=== PATIENT | female | born 2000 | race Caucasian/White ===

== ENCOUNTER 2018-10-20 18:52 | Emergency (ER) | payer OTHER ==
[~2018-10-20] VITALS: Ht 167.6 cm; Wt 63.5 kg
[2018-10-20 19:05] VITALS: BP_SYST 130
[2018-10-20] MEDS ORDERED: IBUPROFEN 600 MG TABLET PO ONE (19:45)
[2018-10-20] MEDS ORDERED: BACITRACIN 1 GM OINT TP ONE (20:00)
[2018-10-20 20:14] VITALS: BP_SYST 130
== END 2018-10-20 20:14 | disposition home or self-care (01) ==
LOC: SED 18:52
DX: S80.02XA Contusion of left knee, initial encounter (principal); R03.0 Elevated blood-pressure reading, without diagnosis of hypertension; V80.010A Animal-rider injured by fall from or being thrown from horse in noncollision accident, initial encounter; Y93.52 Activity, horseback riding; Y92.89 Other specified places as the place of occurrence of the external cause; Y99.8 Other external cause status
CPT/HCPCS: 73564; 99283